=== PATIENT | male | born 1975 | race Asian ===

== ENCOUNTER 2020-09-15 13:16 | Emergency (ER) | payer OTHER ==
[~2020-09-15] VITALS: Ht 188 cm; Wt 117.9 kg
[2020-09-15 13:16] VITALS: TEMP 98.6
[2020-09-15 13:59] LABS: PLATELET COUNT 315 K/uL (142-355)
[2020-09-15 14:07] LABS: POTASSIUM 4.4 mmol/L (3.6-5.2)
[2020-09-15 14:14] LABS: PARTIAL THROMBOPLASTIN TIME 23.6 SECONDS (24.5-33.6)
[2020-09-15] MEDS ORDERED: CARV25TA PO (14:24)
[2020-09-15] MEDS ORDERED: AMLODIPINE BESYLATE PO (14:24)
[2020-09-15] MEDS ORDERED: GLIP10TA55 PO (14:25)
[2020-09-15] MEDS ORDERED: ESOMEPRAZOLE MA40 M1 PO (14:25)
[2020-09-15] MEDS ORDERED: CLONIDINE HYDR0.2 MG PO (14:25)
[2020-09-15] MEDS ORDERED: HYDRALAZINE HY100 MG PO (14:26)
[2020-09-15] MEDS ORDERED: METFORMIN HYD1000 M1 PO (14:27)
[2020-09-15] MEDS ORDERED: HYDROCODONE BIT1 TA2 PO (14:27)
[2020-09-15 16:00] VITALS: BP 186/93
== END 2020-09-15 16:05 | disposition short-term general hospital (02) ==
LOC: ED 13:23
PROVIDERS: Hospitalist
DX: R55 Syncope and collapse (principal); N18.6 End stage renal disease; Z99.2 Dependence on renal dialysis; R56.9 Unspecified convulsions
CPT/HCPCS: 80053; 80320; 82550; 83605; 83880; 84484; 85027; 85610; 85730; 87040; 93005; 96365; 99284; J3370